=== PATIENT | male | born 1950 | race American Indian/Alaskan Native ===

== ENCOUNTER 2017-02-19 23:28 | Emergency (ER) | payer MEDICARE ==
[2017-02-20] MEDS ORDERED: ASPIRIN PO ONE (00:23)
[2017-02-20 01:09] LABS: Hematocrit 44.9 % (35.5-45.6); Hemoglobin 14.1 gm/dl (11.8-15.2); Mean Corpuscular HGB Conc 32 % (32-34); Mean Corpuscular Hemoglobin 27 pg (28-32); Mean Corpuscular Volume 86 fl (84-94); Platelet Count 166 K/mm3 (140-440); Red Blood Count 5.21 M/mm3 (3.65-5.03); Red Cell Distribution Width 16.5 % (13.2-15.2)
--- NOTE | 2017-02-20 01:09 | XRay Report ---
FINAL REPORT EXAM: XR CHEST ROUTINE 2V HISTORY: Shortness of breath, cough, fever, chills. TECHNIQUE: A lateral and two frontal radiographs of the chest were obtained. No prior studies are available for comparison. FINDINGS: The patient is status post median sternotomy. The heart is top-normal in size. There is eventration of the right hemidiaphragm. There are moderate streaky areas of consolidation at the right lung base, in keeping with infiltrates/pneumonia, given reported history. There is no pleural effusion or pneumothorax. No significant osseous abnormalities are identified. IMPRESSION: Moderate streaky consolidation at the right lung base, in keeping with infiltrates/pneumonia.
[2017-02-20 01:12] LABS: BUN/Creatinine Ratio 18; Blood Urea Nitrogen 24 mg/dL (9-20); Hemolysis Index 3
[2017-02-20 02:04] LABS: Chol/HDL Ratio 3.23 %; HDL Cholesterol 42 mg/dL (40-59); LDL Cholesterol,Direct 74 mg/dL (50-130)
[2017-02-20 02:13] LABS: Anisocytosis 1+; Band Neutrophils # (Manual) 0.1 K/mm3; Basophils % (Manual) 0 % (0.0-1.8); Platelet Estimate Consistent w Auto; Total Cells Counted 100
--- NOTE | 2017-02-20 12:15 | Emergency Department Report ---
ED Shortness of Breath HPI - General Chief Complaint: Dyspnea/Respdistress Stated Complaint: COUGH Time Seen by Provider: 02/20/17 12:02 Source: patient Mode of arrival: Ambulatory Limitations: No Limitations - History of Present Illness Initial Comments: Patient is 66-year-old male history of diabetes and hypertension, presented to the ER with 5 days history of shortness of breath cough and right sided chest pain and fever. Patient stated that his who is currently in [place] she had the same symptoms before she left. Patient denied any nausea or vomiting no diarrhea. MD Complaint: shortness of breath, cough -: week(s) Severity: moderate Consistency: constant Known History Of: diabetes Associated Symptoms: fever, cough, sputum production - Related Data Allergies Allergy/AdvReac Type Severity Reaction Status Date / Time heparin Allergy Unknown Verified 02/20/17 00:21 ED Review of Systems ROS: Stated complaint: COUGH Other details as noted in HPI Comment: All other systems reviewed and negative Constitutional: chills, fever Respiratory: cough, shortness of breath. denies: orthopnea, SOB with exertion, SOB at rest, stridor, wheezing Cardiovascular: chest pain (right sided and sharp in nature.). denies: palpitations Gastrointestinal: denies: abdominal pain, nausea, vomiting, diarrhea, constipation Genitourinary: denies: urgency, dysuria, frequency, hematuria Neurological: denies: headache, weakness, numbness, paresthesias ED Past Medical Hx - Past Medical History Hx Hypertension: Yes Hx Diabetes: Yes Additional medical history: hyperlipidemia, gout, CAD - Surgical History Past Surgical History?: Yes Additional Surgical History: Bypass Surgery 2004 - Social History Smoking Status: Never Smoker Substance Use Type: None ED Physical Exam - General Limitations: No Limitations General appearance: alert, in no apparent distress - Head Head exam: Present: atraumatic, normocephalic, normal inspection - Eye Eye exam: Present: normal appearance, PERRL Pupils: Present: normal accommodation - ENT ENT exam: Present: normal exam, normal orophraynx, mucous membranes moist - Neck Neck exam: Present: normal inspection, full ROM. Absent: tenderness, meningismus - Respiratory Respiratory exam: Present: rales (right lower lobe), decreased breath sounds ( right lower lobe). Absent: respiratory distress, wheezes, rhonchi, stridor, accessory muscle use - Cardiovascular Cardiovascular Exam: Present: regular rate, normal rhythm, normal heart sounds - GI/Abdominal GI/Abdominal exam: Present: soft, normal bowel sounds. Absent: distended, tenderness, guarding, rebound, rigid, organomegaly, mass, bruit, pulsatile mass , hernia - Extremities Exam Extremities exam: Present: normal inspection, full ROM, normal capillary refill - Back Exam Back exam: Present: normal inspection, full ROM. Absent: tenderness, CVA tenderness (R), CVA tenderness (L), muscle spasm, paraspinal tenderness, vertebral tenderness - Neurological Exam Neurological exam: Present: alert, oriented X3, CN II-XII intact, normal gait - Skin Skin exam: Present: warm, intact, normal color ED Course Vital Signs 02/19/17 02/20/17 02/20/17 23:35 00:13 05:53 Temperature 99.1 F 99.1 F 99.4 F Pulse Rate 77 76 72 Respiratory 20 20 16 Rate Blood Pressure 135/68 135/68 138/76 O2 Sat by Pulse 95 95 96 Oximetry ED Medical Decision Making - Lab Data Result diagrams: 02/20/17 00:25 02/20/17 00:25 - EKG Data -: EKG Interpreted by Dc EKG shows normal: sinus rhythm Rate: normal - EKG Data Interpretation: no acute changes - Radiology Data Radiology results: report reviewed Referring Physician: BECKY BOYLE Patient Name: VIVIANE NATH Date of : 1950 Sex: Male Report Date: 2017-02-19 Report Status: [id number] XRay Report Signed Patient: VIVIANE NATH MR#: [id number] : 1950 Acct:[id number] Age/Sex: 66 / M ADM Date: 02/19/17 Loc: ED Attending Dr: Ordering Physician: BECKY BOYLE MD Date of Service: 02/20/17 Procedure(s): XR chest routine 2V Accession Number(s): [id number] cc: BECKY BOYLE MD Fluoro Time In Minutes: FINAL REPORT EXAM: XR CHEST ROUTINE 2V HISTORY: Shortness of breath, cough, fever, chills. TECHNIQUE: A lateral and two frontal radiographs of the chest were obtained. No prior studies are available for comparison. FINDINGS: The patient is status post median sternotomy. The heart is top-normal in size. There is eventration of the right hemidiaphragm. There are moderate streaky areas of consolidation at the right lung base, in keeping with infiltrates/pneumonia, given reported history. There is no pleural effusion or pneumothorax. No significant osseous abnormalities are identified. IMPRESSION: Moderate streaky consolidation at the right lung base, in keeping with infiltrates/pneumonia. Transcribed By: MATA Dictated By: JOHN MONTILLA MD Electronically Authenticated By: JOHN MONTILLA MD Signed Date/Time: 02/19/172105 DD/ 05 TD/TT: 02/19/172105 - Medical Decision Making Patient clinically looks well, in no acute distress he's good for outpatient treatment. Patient denied any nausea or vomiting. Critical care attestation.: If time is entered above; I have spent that time in minutes in the direct care of this critically ill patient, excluding procedure time. ED Disposition Clinical Impression: Chest pain, Pneumonia Disposition: - TO HOME OR SELFCARE Is pt being admited?: No Condition: Stable Instructions: Chest Pain (ED), Bacterial Pneumonia (ED) Referrals: LINK WILLIAMSON MD [Primary Care Provider] - 3-5 Days
[2017-02-20] MEDS ORDERED: ROCEPHIN IM ONE (12:20)
[2017-02-20] MEDS ORDERED: XYLOCAINE 1% MPF 5 mL INFILTRATI ONE (12:20)
[2017-02-20 12:57] VITALS: BP 123/75
== END 2017-02-20 12:56 | disposition home or self-care (01) ==
LOC: ED 23:28
DX: J18.9 Pneumonia, unspecified organism (principal); I10 Essential (primary) hypertension; E11.9 Type 2 diabetes mellitus without complications; E78.5 Hyperlipidemia, unspecified; I25.810 Atherosclerosis of coronary artery bypass graft(s) without angina pectoris; Z88.8 Allergy status to other drugs, medicaments and biological substances
CPT/HCPCS: 36415; 71020; 80048; 80061; 84484; 85007; 85025; 93005; 93010; 96372; 99284; J0696